=== PATIENT | female | born 1995 | race African-American/Black ===

== ENCOUNTER 2019-10-20 11:15 | Emergency (ER) | payer OTHER ==
[~2019-10-20] VITALS: Ht 165.1 cm; Wt 62.6 kg
[~2019-10-20 11:15] MED LIST: BACTRIM DS TAB1 EACH PO; COLACE 100 MG100 MG PO; HYDROCODONE-AP1 EAC6 PO; IBUPROFEN 600600 M1 PO; IRON325 PO
[2019-10-20 12:55] LABS: URINE BILIRUBIN NEGATIVE (Negative); URINE BLOOD 2+ (Negative); URINE CLARITY CLEAR; URINE COLOR YELLOW; URINE GLUCOSE-RANDOM* NEGATIVE (Negative); URINE KETONES 1+ (Negative); URINE LEUKOCYTES-REFLEX NEGATIVE (Negative); URINE NITRITE-REFLEX NEGATIVE (Negative); URINE PROTEIN (DIPSTICK) 1+ (Negative)
[2019-10-20 13:17] LABS: CASTS None Seen /LPF (None Seen); SQUAMOUS 4-10 Moderate /LPF (0-3); URINE RBC 0-2 Rare /HPF (0-2); URINE WBC-REFLEX 0-5 Rare /HPF (0-5)
[2019-10-20 13:18] LABS: BACTERIA-REFLEX None Seen /HPF (None Seen); CRYSTALS None Seen /LPF (None Seen)
[2019-10-20 13:31] LABS: ABSOLUTE NEUTROPHILS 12.7 thou/uL (1.4-8.2); BASOPHILS 0.5 % (0.0-2.0); EOSINOPHILS 0.2 % (0.0-3.0); HEMATOCRIT 45.7 % (37.0-47.0); HEMOGLOBIN 15.5 gm/dL (12.0-15.0); LYMPHOCYTES 12.4 % (24.0-44.0); MCH 29.5 pg (26.0-34.0); MCV 86.9 fL (80.0-100.0); MONOCYTES 3.7 % (1.0-8.0); PLATELET COUNT 360 thou/uL (150-400); POLYS 83.2 % (36.0-66.0); RBC 5.26 mil/uL (4.20-5.00); RDW 13.2 % (10.5-14.5); WBC 15.3 thou/uL (4.0-11.0)
[2019-10-20 13:42] LABS: CALCIUM 9.4 mg/dL (8.5-10.1); CREATININE 0.8 mg/dL (0.6-1.0)
[2019-10-20 13:43] LABS: POTASSIUM 3.7 mmol/L (3.5-5.1)
[2019-10-20 13:55] LABS: ALBUMIN 4.4 g/dL (3.4-5.0); TOTAL BILIRUBIN 1.3 mg/dL (0.2-1.0); TOTAL PROTEIN 8.3 g/dL (6.4-8.2)
[2019-10-20] MEDS ORDERED: NAPROSYN500 MG PO (15:54)
[2019-10-20] MEDS ORDERED: ZOFRAN ODT4 MG DISSOLVE (15:54)
[2019-10-20 16:28] VITALS: BP 129/90
== END 2019-10-20 16:28 | disposition home or self-care (01) ==
LOC: ER 11:15
PROVIDERS: Physician Assistant
DX: R11.2 Nausea with vomiting, unspecified (principal); N92.0 Excessive and frequent menstruation with regular cycle; Z79.899 Other long term (current) drug therapy

== ENCOUNTER 2020-04-20 19:47 | Emergency (ER) | payer OTHER ==
[~2020-04-20] VITALS: Ht 170.2 cm; Wt 54.4 kg
[~2020-04-20 19:47] MED LIST changes: +NAPROSYN500 MG PO; +ZOFRAN ODT4 MG DISSOLVE
[2020-04-20 20:29] LABS: URINE BILIRUBIN NEGATIVE (Negative); URINE BLOOD NEGATIVE (Negative); URINE CLARITY CLEAR; URINE COLOR YELLOW; URINE GLUCOSE-RANDOM* NEGATIVE (Negative); URINE KETONES TRACE (Negative); URINE LEUKOCYTES-REFLEX NEGATIVE (Negative); URINE NITRITE-REFLEX NEGATIVE (Negative); URINE PROTEIN (DIPSTICK) 2+ (Negative); URINE SPECIFIC GRAVITY >= 1.030 (1.005-1.035); URINE UROBILINOGEN 0.2 E.U./dl (0.2-1.0)
[2020-04-20 20:32] LABS: HEMATOCRIT 43.4 % (37.0-47.0); HEMOGLOBIN 14.5 gm/dL (12.0-15.0); MCH 29.7 pg (26.0-34.0); MCHC 33.3 g/dL (28.0-37.0); PLATELET COUNT 403 thou/uL (150-400); RBC 4.88 mil/uL (4.20-5.00); RDW 13.6 % (10.5-14.5); WBC 26.8 thou/uL (4.0-11.0)
[2020-04-20 20:37] LABS: BACTERIA-REFLEX 1-9 Few /HPF (None Seen); CASTS None Seen /LPF (None Seen); CRYSTALS None Seen /LPF (None Seen); MUCUS >6 Heavy strn/LPF (None Seen); SQUAMOUS >10 Many /LPF (0-3); URINE RBC None Seen /HPF (0-2); URINE WBC-REFLEX 0-5 Rare /HPF (0-5)
[2020-04-20 20:41] LABS: CALCIUM 9.9 mg/dL (8.5-10.1); CREATININE 0.9 mg/dL (0.6-1.0); POTASSIUM 3.4 mmol/L (3.5-5.1)
[2020-04-20 20:47] LABS: ALBUMIN 4.3 g/dL (3.4-5.0); TOTAL BILIRUBIN 0.9 mg/dL (0.2-1.0); TOTAL PROTEIN 8.1 g/dL (6.4-8.2)
[2020-04-20] MEDS ORDERED: MACROBID 100 M100 M1 PO (21:22)
[2020-04-20] MEDS ORDERED: ZOFRAN ODT4 MG PO (21:22)
[2020-04-20 21:30] VITALS: BP 118/65
[2020-04-20 22:11] LABS: ABSOLUTE NEUTROPHILS 22.2 thou/uL (1.4-8.2); PLATELET ESTIMATE INCREASED
== END 2020-04-20 21:32 | disposition home or self-care (01) ==
LOC: ER 19:47
PROVIDERS: Emergency Medicine
DX: O21.0 Mild hyperemesis gravidarum (principal); O30.001 Twin pregnancy, unspecified number of placenta and unspecified number of amniotic sacs, first trimester; Z3A.01 Less than 8 weeks gestation of pregnancy

== ENCOUNTER 2020-04-22 01:12 | Emergency (ER) | payer OTHER ==
[~2020-04-22] VITALS: Ht 170.2 cm; Wt 54.4 kg
[~2020-04-22 01:12] MED LIST changes: +MACROBID 100 M100 M1 PO; +ZOFRAN ODT4 MG PO
[2020-04-22 02:30] LABS: URINE BILIRUBIN NEGATIVE (Negative); URINE BLOOD NEGATIVE (Negative); URINE CLARITY SL CLOUDY; URINE COLOR YELLOW; URINE GLUCOSE-RANDOM* 3+ (Negative); URINE KETONES 3+ (Negative); URINE LEUKOCYTES-REFLEX NEGATIVE (Negative); URINE NITRITE-REFLEX NEGATIVE (Negative); URINE PROTEIN (DIPSTICK) NEGATIVE (Negative); URINE SPECIFIC GRAVITY 1.015 (1.005-1.035); URINE UROBILINOGEN 0.2 E.U./dl (0.2-1.0)
[2020-04-22 02:31] LABS: CREATININE 0.8 mg/dL (0.6-1.0)
[2020-04-22 02:33] LABS: CALCIUM 7.6 mg/dL (8.5-10.1)
[2020-04-22 03:11] LABS: URINE BILIRUBIN NEGATIVE (Negative); URINE BLOOD NEGATIVE (Negative); URINE CLARITY CLEAR; URINE COLOR YELLOW; URINE GLUCOSE-RANDOM* 3+ (Negative); URINE KETONES NEGATIVE (Negative); URINE LEUKOCYTES-REFLEX NEGATIVE (Negative); URINE NITRITE-REFLEX NEGATIVE (Negative); URINE PROTEIN (DIPSTICK) NEGATIVE (Negative); URINE UROBILINOGEN 0.2 E.U./dl (0.2-1.0)
[2020-04-22] MEDS ORDERED: DICLEGIS DR 101 EACH PO (03:42)
[2020-04-22 03:59] VITALS: BP 131/87
== END 2020-04-22 04:01 | disposition home or self-care (01) ==
LOC: ER 01:12
PROVIDERS: Emergency Medicine
DX: O21.0 Mild hyperemesis gravidarum (principal); E87.6 Hypokalemia; Z79.899 Other long term (current) drug therapy; Z3A.01 Less than 8 weeks gestation of pregnancy

== ENCOUNTER 2020-10-18 19:32 | Emergency (ER) | payer OTHER ==
[~2020-10-18] VITALS: Ht 170.2 cm; Wt 67.1 kg
[~2020-10-18 19:32] MED LIST changes: +DICLEGIS DR 101 EACH PO
[2020-10-18 20:18] LABS: HEMOGLOBIN 12.3 gm/dL (12.0-15.0); MCH 29.2 pg (26.0-34.0); MCHC 34.3 g/dL (28.0-37.0); MCV 85.2 fL (80.0-100.0); RBC 4.23 mil/uL (4.20-5.00); RDW 13.2 % (10.5-14.5); WBC 21.4 thou/uL (4.0-11.0)
[2020-10-18 20:30] LABS: CALCIUM 9.4 mg/dL (8.5-10.1); CREATININE 0.7 mg/dL (0.6-1.0); POTASSIUM 3.6 mmol/L (3.5-5.1)
[2020-10-18 20:36] LABS: ALBUMIN 3.2 g/dL (3.4-5.0); TOTAL BILIRUBIN 0.8 mg/dL (0.2-1.0); TOTAL PROTEIN 7.6 g/dL (6.4-8.2)
[2020-10-18 23:04] LABS: URINE BILIRUBIN NEGATIVE (Negative); URINE BLOOD NEGATIVE (Negative); URINE CLARITY CLEAR; URINE COLOR YELLOW; URINE GLUCOSE-RANDOM* NEGATIVE (Negative); URINE KETONES 3+ (Negative); URINE LEUKOCYTES-REFLEX NEGATIVE (Negative); URINE NITRITE-REFLEX NEGATIVE (Negative); URINE PROTEIN (DIPSTICK) 1+ (Negative); URINE SPECIFIC GRAVITY >= 1.030 (1.005-1.035); URINE UROBILINOGEN 0.2 E.U./dl (0.2-1.0)
[2020-10-18 23:14] LABS: SQUAMOUS 4-10 Moderate /LPF (0-3); URINE RBC 1-2 Rare /HPF (NONE SEEN); URINE WBC-REFLEX 0-5 Rare /HPF (0-5)
[2020-10-18 23:15] LABS: BACTERIA-REFLEX 1-9 Few /HPF (None Seen); CASTS None Seen /LPF (None Seen); CRYSTALS None Seen /LPF (None Seen); MUCUS 4-6 Moderate strn/LPF (None Seen)
[2020-10-18 23:37] LABS: CALCIUM 8.7 mg/dL (8.5-10.1); CREATININE 0.8 mg/dL (0.6-1.0); POTASSIUM 3.5 mmol/L (3.5-5.1)
[2020-10-19] MEDS ORDERED: ONDANSETRON HCL4 M2 PO (00:29)
[2020-10-19 00:36] VITALS: BP 128/86
== END 2020-10-19 00:37 | disposition home or self-care (01) ==
LOC: ER 19:32
PROVIDERS: Emergency Medicine
DX: O21.0 Mild hyperemesis gravidarum (principal); E88.89 Other specified metabolic disorders; Z3A.32 32 weeks gestation of pregnancy; Z79.899 Other long term (current) drug therapy

== ENCOUNTER 2021-01-01 09:25 | Emergency (ER) | payer OTHER ==
[~2021-01-01] VITALS: Ht 157.5 cm; Wt 59.0 kg
[~2021-01-01 09:25] MED LIST changes: +ONDANSETRON HCL4 M2 PO
[2021-01-01 09:59] LABS: BASOPHILS 0.3 % (0.0-2.0); HEMATOCRIT 39.1 % (37.0-47.0); HEMOGLOBIN 13.2 gm/dL (12.0-15.0); MCH 29.2 pg (26.0-34.0); MCHC 33.7 g/dL (28.0-37.0); MCV 86.8 fL (80.0-100.0); MONOCYTES 1.1 % (1.0-8.0); PLATELET COUNT 370 thou/uL (150-400); POLYS 93.6 % (36.0-66.0); RBC 4.51 mil/uL (4.20-5.00); RDW 15.9 % (10.5-14.5); WBC 14.9 thou/uL (4.0-11.0)
[2021-01-01 10:06] LABS: CALCIUM 9.7 mg/dL (8.5-10.1); CREATININE 0.9 mg/dL (0.6-1.0)
[2021-01-01 10:07] LABS: POTASSIUM 3.9 mmol/L (3.5-5.1)
[2021-01-01 10:13] LABS: ALBUMIN 4.3 g/dL (3.4-5.0); TOTAL BILIRUBIN 0.9 mg/dL (0.2-1.0); TOTAL PROTEIN 8.1 g/dL (6.4-8.2)
[2021-01-01 12:45] VITALS: BP 127/83
[2021-01-01] MEDS ORDERED: ZOFRAN ODT4 MG PO (12:45)
== END 2021-01-01 12:45 | disposition home or self-care (01) ==
LOC: ER 09:25
PROVIDERS: Emergency Medicine
DX: K52.9 Noninfective gastroenteritis and colitis, unspecified (principal)